=== PATIENT | male | born 1945 | race Caucasian/White ===

== ENCOUNTER 2020-03-21 02:23 | Emergency (ER) | payer OTHER ==
[~2020-03-21] VITALS: Ht 177.8 cm; Wt 73.0 kg
[2020-03-21 03:27] LABS: HEMATOCRIT. 38.6 % (42.0-52.0); HEMOGLOBIN. 13.1 g/dL (14.0-18.0); MEAN CORPUSCULAR VOLUME 103.2 fL (80.0-94.0); MEAN PLATELET VOLUME 7.6 fl (7.4-10.4); PLATELET 191 x1000/uL (130-400); RED BLOOD CELL COUNT 3.74 mill/uL (4.7-6.1); RED CELL DISTRIBUTION WIDTH 16.1 % (11.6-14.6)
[2020-03-21 03:37] LABS: CHLORIDE 98 mEq/L (98-107)
[2020-03-21 03:40] LABS: ETHANOL BLOOD < 10 mg/dL
[2020-03-21 05:15] LABS: PLATELET ESTIMATE NORMAL
[2020-03-21 05:51] VITALS: BP 146/77
== END 2020-03-21 10:35 | disposition home or self-care (01) ==
LOC: ER 02:40
DX: S00.81XA Abrasion of other part of head, initial encounter (principal); W18.39XA Other fall on same level, initial encounter; Y93.89 Activity, other specified; F10.10 Alcohol abuse, uncomplicated; Y90.0 Blood alcohol level of less than 20 mg/100 ml; Y92.89 Other specified places as the place of occurrence of the external cause
CPT/HCPCS: 36415; 71045; 80053; 80320; 83880; 84484; 85025; 93005; 99285; G0480